=== PATIENT | female | born 1985 | race Caucasian/White ===

== ENCOUNTER 2017-08-17 11:47 | Emergency (ER) | payer OTHER ==
[2017-08-17] MEDS ORDERED: Dexamethasone 4 mg/ml Vial ONE (13:03)
== END 2017-08-17 13:25 | disposition home or self-care (01) ==
LOC: ERS 11:47
DX: J02.0 Streptococcal pharyngitis (principal); I10 Essential (primary) hypertension; E66.9 Obesity, unspecified; F17.210 Nicotine dependence, cigarettes, uncomplicated
CPT/HCPCS: 87430; 96372; 99406; J1100

== ENCOUNTER 2020-08-17 14:07 | Emergency (ER) | payer OTHER ==
[2020-08-17 15:19] LABS: #Basophils 0.1 thou/uL (0.0-0.2); #Eosinphils 0.3 thou/uL (0.0-0.7); #Lymphocytes 2.7 thou/uL (1.20-3.40); #Monocytes 0.4 thou/uL (0.11-0.59); #Neutrophils 3.6 thou/uL (1.40-6.50); %Basophils 1.1 % (0.0-1.0); %Eosinophils 4.7 % (0.0-10.0); %Lymphocytes 38.4 % (21.0-51.0); %Monocytes 5.8 % (0.0-10.0); %Neutrophils 50.1 % (42.0-75.0); Hemoglobin 10.9 g/dL (12.0-16.0); Mean Corpuscular HGB CONC 32.2 g/dL (32.0-36.0); Mean Corpuscular Hemoglobin 27.2 pg (27.0-31.0); Mean Corpuscular Volume 84.6 fL (78.0-98.0); Mean Platelet Volume 6.4 fL (7.4-10.4); Platelet Count 392 thou/uL (130-400); RBC Distribution Width 14.5 % (11.5-14.5); White Blood Cell (WBC) Count 7.1 thou/uL (4.8-10.8)
[2020-08-17 15:39] LABS: ALT (SGPT) 12 U/L (8-55); AST (SGOT) 11 U/L (5-34); Albumin 3.6 g/dL (3.5-5.0); Alkaline Phosphatase 51 U/L (40-110); Anion Gap 13 mmol/L (10-20); BUN (Urea Nitrogen) 13 mg/dL (7.0-18.7); Bilirubin, Total 0.2 mg/dL (0.2-1.2); Calc. Creatinine Clearance 0 mL/min (70-130); Calcium 8.7 mg/dL (7.8-10.44); Carbon Dioxide 24 mmol/L (22-29); Chloride 107 mmol/L (98-107); Estimated GFR-MDRD Greater than 90; Globulin 3.1 g/dL (2.4-3.5); Glucose 101 mg/dL (70-105); Potassium 4.4 mmol/L (3.5-5.1); Protein, Total 6.7 g/dL (6.0-8.3); Sodium 140 mmol/L (136-145)
== END 2020-08-17 16:25 | disposition home or self-care (01) ==
LOC: ERS 14:07
DX: L03.114 Cellulitis of left upper limb (principal); I10 Essential (primary) hypertension; F17.210 Nicotine dependence, cigarettes, uncomplicated; F17.290 Nicotine dependence, other tobacco product, uncomplicated; Z79.899 Other long term (current) drug therapy
CPT/HCPCS: 36415; 80053; 85025; 99283

== ENCOUNTER 2020-09-30 14:02 | Emergency (ER) | payer OTHER | END 2020-09-30 15:11 | disposition left against medical advice (07) | LOC: ERS 14:02 | DX: Z53.21 Procedure and treatment not carried out due to patient leaving prior to being seen by health care provider (principal) ==

== ENCOUNTER 2021-09-14 19:37 | Emergency (ER) | payer OTHER ==
[2021-09-14 21:42] LABS: Bilirubin Negative (Negative); Blood, Urine Negative (Negative); Clarity Clear (Clear); Glucose, Urine (Dipstick) Normal (Negative); Ketone, Urine Negative (Negative); Leukocyte Negative Leu/uL (Negative); Nitrite Negative (Negative); Protein, Urine (Dipstick) 30 mg/dL (Neg-Trace); RBC/HPF 0-3 HPF (0-3); Specific Gravity, Urine 1.037 (1.002-1.036); Urobilinogen 3 mg/dL (Less than 2); WBC/HPF 0-3 HPF (0-3)
[2021-09-14 21:52] LABS: Bacteria/HPF None Seen HPF (None Seen)
[2021-09-14 22:11] LABS: SARS-CoV-2 NAA Rapid Test Not Detected (NotDetected)
== END 2021-09-14 21:48 | disposition home or self-care (01) ==
LOC: ERS 19:37
DX: O98.511 Other viral diseases complicating pregnancy, first trimester (principal); B34.9 Viral infection, unspecified; Z20.822 Contact with and (suspected) exposure to COVID-19; O16.1 Unspecified maternal hypertension, first trimester; O99.331 Smoking (tobacco) complicating pregnancy, first trimester; F17.210 Nicotine dependence, cigarettes, uncomplicated; O30.009 Twin pregnancy, unspecified number of placenta and unspecified number of amniotic sacs, unspecified trimester; Z3A.00 Weeks of gestation of pregnancy not specified
CPT/HCPCS: 0240U; 71045; 81003; 81015

== ENCOUNTER 2021-11-03 13:16 | Emergency (ER) | payer OTHER | END 2021-11-03 14:10 | disposition home or self-care (01) | LOC: ERS 13:16 | DX: O99.612 Diseases of the digestive system complicating pregnancy, second trimester (principal); K04.7 Periapical abscess without sinus; O99.332 Smoking (tobacco) complicating pregnancy, second trimester; F17.210 Nicotine dependence, cigarettes, uncomplicated; I10 Essential (primary) hypertension; Z3A.00 Weeks of gestation of pregnancy not specified | CPT/HCPCS: 99282 ==

== ENCOUNTER 2021-11-25 20:24 | Emergency (ER) | payer OTHER ==
[2021-11-25] MEDS ORDERED: Dexamethasone 4 mg/ml Vial ONE (21:20)
[2021-11-25 21:28] LABS: #Eosinphils 0.1 thou/uL (0.0-0.7); #Lymphocytes 1.2 thou/uL (1.20-3.40); #Monocytes 0.5 thou/uL (0.11-0.59); #Neutrophils 9.6 thou/uL (1.40-6.50); %Eosinophils 0.5 % (0.0-10.0); %Lymphocytes 10.5 % (21.0-51.0); %Monocytes 4.4 % (0.0-10.0); %Neutrophils 84.6 % (42.0-75.0); Hemoglobin 7.6 g/dL (12.0-16.0); Mean Corpuscular Hemoglobin 27.8 pg (27.0-31.0); Mean Corpuscular Volume 86.9 fL (78.0-98.0); Mean Platelet Volume 5.7 fL (7.4-10.4); Platelet Count 306 thou/uL (130-400); RBC Distribution Width 14.8 % (11.5-14.5); Red Blood Cell (RBC) Count 2.74 mill/uL (4.20-5.40); White Blood Cell (WBC) Count 11.4 thou/uL (4.8-10.8)
[2021-11-25 22:13] LABS: ALT (SGPT) 10 U/L (8-55); AST (SGOT) 19 U/L (5-34); Albumin 3.1 g/dL (3.5-5.0); Alkaline Phosphatase 114 U/L (40-110); Anion Gap 12 mmol/L (10-20); BUN (Urea Nitrogen) 10 mg/dL (7.0-18.7); Bilirubin, Total 0.6 mg/dL (0.2-1.2); Calc. Creatinine Clearance 0 mL/min (70-130); Calcium 8.4 mg/dL (7.8-10.44); Carbon Dioxide 19 mmol/L (22-29); Chloride 106 mmol/L (98-107); Globulin 3.3 g/dL (2.4-3.5); Glucose 83 mg/dL (70-105); Potassium 3.8 mmol/L (3.5-5.1); Protein, Total 6.4 g/dL (6.0-8.3); Sodium 133 mmol/L (136-145)
[2021-11-25 22:56] LABS: SARS-CoV-2 NAA Rapid Test Not Detected (NotDetected)
[2021-11-26] MEDS ORDERED: cefTRIAXone\\ROCEPHIN 1 GM VIAL ONE (00:27)
== END 2021-11-26 00:53 | disposition short-term general hospital (02) ==
LOC: ERS 20:24
DX: O99.513 Diseases of the respiratory system complicating pregnancy, third trimester (principal); J18.8 Other pneumonia, unspecified organism; J45.901 Unspecified asthma with (acute) exacerbation; O16.3 Unspecified maternal hypertension, third trimester; O99.333 Smoking (tobacco) complicating pregnancy, third trimester; F17.210 Nicotine dependence, cigarettes, uncomplicated; Z3A.28 28 weeks gestation of pregnancy; Z20.822 Contact with and (suspected) exposure to COVID-19
CPT/HCPCS: 36415; 71045; 80053; 83605; 85025; 87040; 94640; 94760; 96374; J0696; J1100; J7620; U0002

== ENCOUNTER 2022-06-05 16:27 | Emergency (ER) | payer OTHER ==
[2022-06-05 19:48] LABS: Bacteria/HPF 4+ HPF (None Seen); Bilirubin 1+ (Negative); Blood, Urine Negative (Negative); Clarity Clear (Clear); Glucose, Urine (Dipstick) Normal (Negative); Ketone, Urine Negative (Negative); Leukocyte 500 Leu/uL (Negative); Nitrite 1+ (Negative); Protein, Urine (Dipstick) Negative (Neg-Trace); RBC/HPF 0-3 HPF (0-3); Specific Gravity, Urine 1.012 (1.002-1.036); Squamous Epithelial 0-3 HPF (0-3)
[2022-06-05 19:49] LABS: Pregnancy Test - Urine (BHCG) Negative (Negative); Pregu Control Background? CLEAR/WHITE (CLR/WHITE); Pregu Control Bar Appear? YES (CONTROL BAR); Specific Gravity 1.012 (1.002-1.036)
== END 2022-06-05 20:50 | disposition home or self-care (01) ==
LOC: ERS 16:27
DX: A60.00 Herpesviral infection of urogenital system, unspecified (principal); B37.3 Candidiasis of vulva and vagina; N39.0 Urinary tract infection, site not specified; I10 Essential (primary) hypertension; F17.210 Nicotine dependence, cigarettes, uncomplicated
CPT/HCPCS: 81003; 81015; 81025; 99283